=== PATIENT | female | born 1960 | race African-American/Black ===

== ENCOUNTER 2022-03-13 16:02 | Observation (INO) ==
[2022-03-13] MEDS ORDERED: LABETALOL 20 MG/4 ML SYRINGE IV STA ×2 (17:13→18:15)
[2022-03-13 17:34] LABS: Basophils % 0.4 % (0.0-0.8); Eosinophils % 0.6 % (0.00-10.9); Hematocrit 37.7 VOL% (35.7-47.0); Immature Granulocytes % 0.2 %; Immature Granulocytes Absolute 0.01 #; Lymphocytes # 1.1 10*3/uL (1.4-4.0); Lymphocytes % 23.2 % (21.3-54.2); Mean Corpuscular HGB Conc 31.8 GM/DL (32-36); Mean Corpuscular Volume 88.3 FL (87-102); Mean Platelet Volume 9.7 FL (9.6-12.0); Monocytes # 0.3 10*3/uL (0.11-0.8); Monocytes % 5.1 % (1.7-12.7); Neutrophils % 70.5 % (38.7-73.9); Platelet Count 320 T/CUMM (130-400); Red Blood Count 4.27 MC/CUMM (3.8-5.5); Red Cell Distribution Width 14.3 % (9.3-17.3); White Blood Count 4.9 T/CUMM (4-12)
[2022-03-13 17:40] LABS: Bilirubin,Urine Negative (Negative); Blood, Urine Trace mg/dL (Negative); Glucose,Urine (UA) Negative (Negative); Ketones,Urine Negative (Negative); Nitrite,Urine Negative (Negative); Protein,Urine 100 mg/dL (Negative); Urine Appearance Clear (Clear); Urine Color Yellow (Yellow); Urine Urobilinogen 0.2 eU/dL (<2.0)
[2022-03-13 17:43] LABS: Hyaline Casts,Urine 3 /LPF (0-3); Mucus,Urine Few /LPF (Occasional); RBC,Urine 1 /HPF (0-4); Squamous Epithelial Cell,Urine Occasional /HPF (0-10)
[2022-03-13 17:52] LABS: Barbiturates Screen,Urine Negative (Negative); Benzodiazepines Screen,Urine Negative (Negative); Cannabinoid Screen,Urine Negative (Negative); Opiate Screen,Urine Positive (Negative); Phencyclidine Screen,Urine Negative (Negative)
[2022-03-13 17:57] LABS: Alanine Aminotransferase 17 U/L (13-56); Albumin 4.1 G/DL (3.4-5.0); Alkaline Phosphatase 81 U/L (45-117); Aspartate Amino Transferase 17 U/L (0-37); Blood Urea Nitrogen 15 MG/DL (7-18); Carbon Dioxide 26 MMOL/L (21-32); Chloride 106 MMOL/L (98-107); Glucose 108 MG/DL (74-106); Osmolality,Calculated 280.4 MOS/KG (273-304); Potassium 3.8 MMOL/L (3.5-5.1); Sodium 140 MMOL/L (136-145); Total Protein 8.8 G/DL (6.4-8.2)
[2022-03-13 18:02] LABS: PT Patient Result 10.7 SECS (10.1-12.1)
[2022-03-13 18:04] LABS: Partial Thromboplastin Time 27.9 SECS (23.7-32.9)
[2022-03-13] MEDS ORDERED: ASPIRIN 325 MG TABLET PO STA (18:26)
[2022-03-13] MEDS ORDERED: lisinopriL 20 MG TABLET PO STA (19:09)
[2022-03-13] MEDS ORDERED: carvediloL 3.125 MG TABLET PO STA (19:10)
[2022-03-13] MEDS ORDERED: ONDANSETRON 4 MG/2 ML VIAL IV PRN (19:12)
[2022-03-13] MEDS ORDERED: ACETAMINOPHEN 325 MG TABLET PO PRN (19:12)
[2022-03-13] MEDS ORDERED: ZALEPLON 5 MG CAPSULE PO PRN (19:12)
[2022-03-13] MEDS ORDERED: DOCUSATE SODIUM 100 MG CAPSULE PO PRN (19:12)
[2022-03-13] MEDS ORDERED: hydrALAZINE 20 MG/1 ML VIAL IV PRN (19:14)
[2022-03-13] MEDS: HEPARIN 5,000 UNIT/1 ML VIAL SUBCUT SCH (21:14)
[2022-03-13] MEDS ORDERED: DOXAZOSIN 1 MG TABLET PO SCH (21:30)
[2022-03-13] MEDS ORDERED: carvediloL 12.5 MG TABLET PO ONE (23:22)
[2022-03-13] MEDS ORDERED: DOXAZOSIN 1 MG TABLET PO ONE (23:30)
[2022-03-14 05:39] LABS: Basophils % 0.7 % (0.0-0.8); Eosinophils # 0.1 10*3/uL (0.0-0.87); Eosinophils % 1.2 % (0.00-10.9); Hematocrit 35.7 VOL% (35.7-47.0); Hemoglobin 11.3 GM/DL (12.0-16.0); Immature Granulocytes % 0.2 %; Immature Granulocytes Absolute 0.01 #; Lymphocytes # 1.8 10*3/uL (1.4-4.0); Lymphocytes % 30.9 % (21.3-54.2); Mean Corpuscular HGB Conc 31.7 GM/DL (32-36); Monocytes # 0.5 10*3/uL (0.11-0.8); Monocytes % 8.6 % (1.7-12.7); Neutrophils % 58.4 % (38.7-73.9); Platelet Count 370 T/CUMM (130-400); Red Blood Count 4.01 MC/CUMM (3.8-5.5); Red Cell Distribution Width 14.1 % (9.3-17.3); White Blood Count 5.7 T/CUMM (4-12)
[2022-03-14 06:10] LABS: Calcium 9.5 MG/DL (8.5-10.1); Osmolality,Calculated 281.3 MOS/KG (273-304); Potassium 3.6 MMOL/L (3.5-5.1); Risk Ratio 2.36; Thyroid Stimulating Hormone 2.12 uIU/ml (0.358-3.74)
[2022-03-14] MEDS ORDERED: lisinopriL 10 MG TABLET PO SCH (09:00)
[2022-03-14] MEDS ORDERED: carvediloL 3.125 MG TABLET PO SCH (09:00)
[2022-03-14] MEDS: HEPARIN 5,000 UNIT/1 ML VIAL SUBCUT SCH (09:32)
[2022-03-14 11:40] VITALS: BP 157/89
== END 2022-03-14 11:54 | disposition home or self-care (01) ==
LOC: N.ED 16:02 → N.2E 16:02 → SUATTDRO 19:08 → N.2E 22:46
PROVIDERS: ADMIT Hospitalist; ATTEND Internal Medicine